=== PATIENT | male | born 1970 | race African-American/Black ===

== ENCOUNTER 2021-08-11 21:59 | Emergency (ER) | payer OTHER ==
[~2021-08-11] VITALS: Ht 177.8 cm; Wt 122.0 kg
[2021-08-11] MEDS ORDERED: LIDOCAINE 1% PF 5 ML VIAL. INJ ONE (22:45)
[2021-08-11] MEDS ORDERED: LIDOCAINE/EPI/TETRACAINE TOPICAL GEL 3 ML. TP ONE (23:00)
[2021-08-11] MEDS ORDERED: DIPHTH,PERTUSS(ACELL),TET TOX 0.5 ML DISP.SYRIN. VAX IM ONE ×2 (23:00)
[2021-08-11] MEDS ORDERED: AMOX1TAB58 PO (23:01)
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
[2021-08-12] MEDS ORDERED: HYDR-2759 PO (00:14)
[2021-08-12] MEDS ORDERED: HYDROcodone/APAP 5/325MG 1 TAB TABLET PO ONE (00:30)
[2021-08-12 00:36] VITALS: BP 131/85
== END 2021-08-12 00:36 | disposition home or self-care (01) ==
LOC: ER 21:59
DX: S01.81XA Laceration without foreign body of other part of head, initial encounter (principal); W18.09XA Striking against other object with subsequent fall, initial encounter; Y93.89 Activity, other specified; Y92.89 Other specified places as the place of occurrence of the external cause; Y99.8 Other external cause status
CPT/HCPCS: 12014; 70450; 90471; 90715; 99284; J3490